=== PATIENT | male | born 1960 | race Caucasian/White ===

== ENCOUNTER 2022-05-30 11:45 | Inpatient (IN) | payer MEDICAID, SELFPAY ==
[2022-05-30] VITALS (11 sets, daily range): BP systolic 80–120; BP diastolic 48–79; PULSE 83–95; RESP 15–18; TEMP 35.4–36.8; O2SAT 96–99; BMI 30.7; BMI 29.6
[2022-05-30 12:32] LABS: COVID-19 Test Negative (Negative); IDNOW Serial# 55D5AD1C
[2022-05-30 12:33] LABS: MANUAL DIFF FLAG NO
[2022-05-30 12:34] LABS: Basophils Percent Auto 0.5 % (0-2); Eosinophils Absolute Auto 0.2 X10*3/uL (0.0-0.4); Hematocrit 33.4 % (42.0-52.0); Imm Gran Abs Auto 0.04 X10*3/uL (0.00-0.03); Imm Gran Pct Auto 0.5 % (0.0-0.4); Lymphocytes Absolute Auto 1.8 X10*3/uL (1.2-4.9); Lymphocytes Percent Auto 21.8 % (20-40); Mean Corpuscular HGB Conc 32.9 g/dl (31.0-36.0); Mean Corpuscular Hemoglobin 30.2 pg (27.0-33.0); Mean Corpuscular Volume 91.8 fL (80.0-98.0); Monocytes Absolute Auto 0.7 X10*3/uL (0.1-1.2); Neutrophils Absolute Auto 5.4 x10*3/uL (2.0-8.3); Neutrophils Percent Auto 67.2 % (45-73); Platelet Count 177 X10*3/uL (160-400); Red Blood Count 3.64 X10*6/uL (4.60-5.80); Red Cell Distribution Width 13.4 % (11.0-16.0); White Blood Count 8.1 X10*3/uL (4.8-10.8)
--- NOTE | 2022-05-30 12:34 | ED.DIZZY ---
HPI - Dizziness General Chief Complaint: Dizziness Stated Complaint: dizzy, vomiting, seeing spots Time Seen by Provider: 05/30/22 12:15 Source: patient and family Mode of arrival: ambulatory Limitations: no limitations History of Present Illness HPI Narrative: A 61-year-old male came in for evaluation of generalized weakness, dizziness, nausea and vomiting and patient found to be hypotensive. Patient was at his normal health state this morning started after he ate sandwich of peanuts butter, started with feeling nauseous followed by vomiting, patient felt dizzy room spinning around him. Patient otherwise declines fever chills no CP, no SOB, no neurological deficit, Patient had similar symptoms in the past was presented to a different hospital record on the available currently. Related Data Allergies Allergy/AdvReac Type Severity Reaction Status Date / Time No Known Allergies Allergy Unverified 05/09/20 18:56 [No Known Allergies*] Review of Systems Review of Systems: All other systems are reviewed and are negative Constitutional: Reports as per HPI and Reports no additional constitutional complaints Eyes: Reports as per HPI and Reports no additional eye complaints Reports system reviewed and no additional complaints, except as documented Cardiovascular: Reports as per HPI and Reports no additional cardiovascular complaints Respiratory: Reports as per HPI and Reports no additional respiratory complaints Gastrointestinal: Reports as per HPI and Reports no additional gastrointestinal complaints Genitourinary: Reports no additional female genitourinary complaints Musculoskeletal: Reports no additional musculoskeletal complaints Skin/Breast: Reports system reviewed and no additional complaints, except as docu Psychiatric: Reports no additional psychiatric complaints Endocrine: Reports no additional endocrine complaints Hematologic/Lymphatic: Reports no additional hematologic/lymphatic complaints Allergic/Immunologic: Reports no additional allergic/immunologic complaints Reports system reviewed and no additional complaints, except as documented and Reports Abnormal speech present [facility] Social History Social History Patient Tobacco Use Status: Current everyday Tobacco user Smoked in Last 30 Days: Yes Use of substances other than those prescribed or required for medical reasons: No Advance Directives: No Advance Directives Information Provided: Yes Physical Exam Vital Signs: Vital Signs: Last Vital Signs Temp 97.6 F 05/30/22 15:19 Pulse 84 05/30/22 15:19 Resp 16 05/30/22 15:19 BP 114/55 L 05/30/22 15:19 Pulse Ox 99 05/30/22 15:19 O2 Del Method 05/30/22 15:19 BMI result Body Mass Index 30.7 Vital signs have been reviewed as appeared to be correct. Blood pressure low. Heart rate normal. Respiration rate normal. Temperature normal. Oxygen saturation normal. Appearance: Alert. Oriented X3. No acute distress. Head: Normal external exam. Normocephalic. Atraumatic. No Ap[place]aca signs noted. No raccoon eyes noted Eyes: PERRLA. EOMI. Conjunctiva and sclera normal. Eyelids normal. ENT: TM's Normal. Pharynx normal. Uvula midline. Moist mucous membranes. No trismus noted. No drooling noted. No muffled voice noted. Neck: Normal inspection. Neck supple. FROM. No adenopathy. Thyroid Normal. No meningeal signs. No neck mass noted. CVS: Normal heart rate and rhythm. Heart sound normal. No murmurs noted. Pulses normal throughout. Respiratory: No respiratory distress. Painless inspiration. Breath sounds normal. No wheezes/rales/rhonchi noted. Chest nontender. No accessory muscle usage noted or decreased air movement noted. Abdomen: Soft and nontender. Bowel sounds normal in all 4 quadrants. No distention noted. No organomegaly noted. No visible injury noted. Rectal exam: Patient declined. Back: No CVA tenderness. Full range of motion noted. Skin: Skin warm and dry. Normal skin color. Normal skin turgor. No rashes/lesions/lacerations noted. Extremities: No lower extremity edema. Extremities exhibit normal range of motion. Extremities nontender. Neuro: Oriented X 3. Cranial nerve exam: II-XII are grossly intact No motor deficit. No sensory deficit. Reflexes normal. Course Course Course Narrative: 61-year-old male came in for vomiting and dehydration found to be in acute renal failure, patient has unremarkable CT of the abdomen pelvis with no acute obstructive uropathy. Barrios catheter was placed patient drained 500 cc of clear urine. Patient feels better after 2 L fluid blood pressure has been stable. Patient also is diabetic and found to have hypoglycemia patient require an amp of D50 and oral juice. Admit the patient for further evaluation. Normal neuro exam was normal CT head making the vertigo not likely to be central. [facility] - Dizziness Medical Records Attestation: I reviewed the patient's medical records. Lab Data Attestation: I reviewed the patient's lab results. Result diagrams: 05/30/22 12:28 05/30/22 12:10 Labs: Lab Results 05/30/22 05/30/22 05/30/22 Range/Units 12:10 12:10 12:28 WBC 8.1 (4.8-10.8) X10*3/uL RBC 3.64 L (4.60-5.80) X10*6/uL Hgb 11.0 L (14.0-18.0) g/dl Hct 33.4 L (42.0-52.0) % MCV 91.8 (80.0-98.0) fL MCH 30.2 (27.0-33.0) pg MCHC 32.9 (31.0-36.0) g/dl RDW 13.4 (11.0-16.0) % Plt Count 177 (160-400) X10*3/uL MPV 12.0 (9.4-12.4) fL Immature Gran % (Auto) 0.5 H (0.0-0.4) % Neut % (Auto) 67.2 (45-73) % Lymph % (Auto) 21.8 (20-40) % [place] % (Auto) 8.0 (2-11) % Eos % (Auto) 2.0 (0-4) % Baso % (Auto) 0.5 (0-2) % Lymph # (Auto) 1.8 (1.2-4.9) X10*3/uL [place] # (Auto) 0.7 (0.1-1.2) X10*3/uL Eos # (Auto) 0.2 (0.0-0.4) X10*3/uL Baso # (Auto) 0.0 (0.0-0.2) X10*3/uL Abs Immat Gran (auto) 0.04 H (0.00-0.03) X10*3/uL Absolute Neuts (auto) 5.4 (2.0-8.3) x10*3/uL Absolute Nucleated RBC 0.000 (0.0-0.012) X10*3/uL Nucleated RBC % (auto) 0.0 (0.0-0.2) /100WBC Sodium 139 (135-145) mmol/L Potassium 4.6 (3.3-5.1) mmol/L Chloride 109 H (96-108) mmol/L Carbon Dioxide 15 L (22-29) mmol/L Anion Gap 20 (12-20) BUN 44 H (9-16) mg/dL Creatinine 4.22 H* (0.5-1.4) mg/dL Estim Creat Clear Calc 19.1 Estimated GFR 14 POC Glucose (60-115) mg/dL Random Glucose 52 L* (60-115) mg/dL Calcium 8.8 (8.4-10.2) mg/dL Total Bilirubin 0.4 (0.0-1.0) mg/dL AST 17 (5-37) U/L ALT 12 (0-40) U/L Alkaline Phosphatase 81 (39-117) U/L Troponin I High Sens (<3.5-35.0) ng/L Total Protein 7.3 (6.5-8.0) g/dL Albumin 4.2 (3.5-5.0) g/dL COVID-19 ([facility]) Negative (Negative) COVID-19 Clin Com See Note 05/30/22 05/30/22 05/30/22 Range/Units 12:28 12:43 12:59 WBC (4.8-10.8) X10*3/uL RBC (4.60-5.80) X10*6/uL Hgb (14.0-18.0) g/dl Hct (42.0-52.0) % MCV (80.0-98.0) fL MCH (27.0-33.0) pg MCHC (31.0-36.0) g/dl RDW (11.0-16.0) % Plt Count (160-400) X10*3/uL MPV (9.4-12.4) fL Immature Gran % (Auto) (0.0-0.4) % Neut % (Auto) (45-73) % Lymph % (Auto) (20-40) % [place] % (Auto) (2-11) % Eos % (Auto) (0-4) % Baso % (Auto) (0-2) % Lymph # (Auto) (1.2-4.9) X10*3/uL [place] # (Auto) (0.1-1.2) X10*3/uL Eos # (Auto) (0.0-0.4) X10*3/uL Baso # (Auto) (0.0-0.2) X10*3/uL Abs Immat Gran (auto) (0.00-0.03) X10*3/uL Absolute Neuts (auto) (2.0-8.3) x10*3/uL Absolute Nucleated RBC (0.0-0.012) X10*3/uL Nucleated RBC % (auto) (0.0-0.2) /100WBC Sodium (135-145) mmol/L Potassium (3.3-5.1) mmol/L Chloride (96-108) mmol/L Carbon Dioxide (22-29) mmol/L Anion Gap (12-20) BUN (9-16) mg/dL Creatinine (0.5-1.4) mg/dL Estim Creat Clear Calc Estimated GFR POC Glucose 38 L* 171 H (60-115) mg/dL Random Glucose (60-115) mg/dL Calcium (8.4-10.2) mg/dL Total Bilirubin (0.0-1.0) mg/dL AST (5-37) U/L ALT (0-40) U/L Alkaline Phosphatase (39-117) U/L Troponin I High Sens < 3.5 (<3.5-35.0) ng/L Total Protein (6.5-8.0) g/dL Albumin (3.5-5.0) g/dL COVID-19 ([facility]) (Negative) COVID-19 Clin Com 05/30/22 Range/Units 14:32 WBC (4.8-10.8) X10*3/uL RBC (4.60-5.80) X10*6/uL Hgb (14.0-18.0) g/dl Hct (42.0-52.0) % MCV (80.0-98.0) fL MCH (27.0-33.0) pg MCHC (31.0-36.0) g/dl RDW (11.0-16.0) % Plt Count (160-400) X10*3/uL MPV (9.4-12.4) fL Immature Gran % (Auto) (0.0-0.4) % Neut % (Auto) (45-73) % Lymph % (Auto) (20-40) % [place] % (Auto) (2-11) % Eos % (Auto) (0-4) % Baso % (Auto) (0-2) % Lymph # (Auto) (1.2-4.9) X10*3/uL [place] # (Auto) (0.1-1.2) X10*3/uL Eos # (Auto) (0.0-0.4) X10*3/uL Baso # (Auto) (0.0-0.2) X10*3/uL Abs Immat Gran (auto) (0.00-0.03) X10*3/uL Absolute Neuts (auto) (2.0-8.3) x10*3/uL Absolute Nucleated RBC (0.0-0.012) X10*3/uL Nucleated RBC % (auto) (0.0-0.2) /100WBC Sodium (135-145) mmol/L Potassium (3.3-5.1) mmol/L Chloride (96-108) mmol/L Carbon Dioxide (22-29) mmol/L Anion Gap (12-20) BUN (9-16) mg/dL Creatinine (0.5-1.4) mg/dL Estim Creat Clear Calc Estimated GFR POC Glucose 95 (60-115) mg/dL Random Glucose (60-115) mg/dL Calcium (8.4-10.2) mg/dL Total Bilirubin (0.0-1.0) mg/dL AST (5-37) U/L ALT (0-40) U/L Alkaline Phosphatase (39-117) U/L Troponin I High Sens (<3.5-35.0) ng/L Total Protein (6.5-8.0) g/dL Albumin (3.5-5.0) g/dL COVID-19 ([facility]) (Negative) COVID-19 Clin Com Imaging Data Head CT: Attestation: I personally reviewed and interpreted this imaging study as follows: Radiologist's impression: No acute intracranial abnormality. Mild bilateral periventricular white matter patchy low-attenuation changes, likely of chronic microangiopathy. CT scan - abdomen: Attestation: I personally reviewed and interpreted this imaging study as follows: Radiologist's impression: *There is 4 mm nonobstructing stone lower calyx left kidney. No hydronephrosis. Minimal bilateral perinephric fat stranding nonspecific. No morphological changes to explain patient's acute renal failure. ? *Urinary bladder is decompressed, Barrios catheter in place. ? *Status post cholecystectomy. ECG Data Attestation: I personally reviewed and interpreted this ECG as follows: Interpretation: Normal sinus rhythm at 87 beats per minute, left axis deviation, normal intervals. Critical Care Time Critical Care Time Critical Care Time: Yes Total Critical Care Time: 60 Attestation: I spent 60 minutes providing critical care service to the patient, this including time spent at the bedside to evaluate the patient, reassess the patient, monitoring vital signs, review labs, and radiographic studies, counseling the patient/family, discussing the case with consultants, disposition the patient. Discharge Plan Discharge Clinical Impression: Acute renal failure, Hypoglycemia, Vertigo Patient Disposition: Admitted As Inpatient
[2022-05-30 12:39] LABS: Alanine Aminotransferase 12 U/L (0-40); Albumin Level 4.2 g/dL (3.5-5.0); Alkaline Phosphatase 81 U/L (39-117); Anion Gap 20 (12-20); Aspartate Amino Transferase 17 U/L (5-37); Bilirubin Total 0.4 mg/dL (0.0-1.0); Blood Urea Nitrogen 44 mg/dL (9-16); Calcium 8.8 mg/dL (8.4-10.2); Carbon Dioxide 15 mmol/L (22-29); Chloride 109 mmol/L (96-108); Creatinine Clr Calc Pharmacy 19.1; Estimated Glomerular Filt Rate 14; Glucose Random 52 mg/dL (60-115); Potassium 4.6 mmol/L (3.3-5.1); Sodium 139 mmol/L (135-145); Total Protein 7.3 g/dL (6.5-8.0)
[2022-05-30] MEDS: Dextrose 50 % 25 GM/50 ML SYRINGE IVPUSH (12:44)
[2022-05-30] MEDS: ondansetron HCL 4 MG/2 ML VIAL IVPUSH (12:48)
[2022-05-30] MEDS: Meclizine HCl 25 MG TABLET PO (12:48)
[2022-05-30 12:56] LABS: Troponin-I High Sensitivity < 3.5 ng/L (<3.5-35.0)
--- NOTE | 2022-05-30 16:40 | PHA.MEDREC ---
Pharmacy Consult ? Medication Reconciliation Pharmacy has completed the medication reconciliation. pt only takes 200 mg of quetiapine daily at bedtime. He fills both the 100 and the 400 mg tablets and will either take 2 of the 100 mg or half of the 400 mg.
[2022-05-30 17:03] LABS: Estimated Average Glucose 117 mg/dL; Hemoglobin A1c % 5.7 %
[2022-05-30 17:57] LABS: Creatinine Urine 116.59 mg/dL; Total Protein Urine Random 15 mg/dL (<12)
--- NOTE | 2022-05-30 18:04 | PM.IMHP ---
History of Present Illness Date of Service: 05/30/22 Chief Complaint: lightheadedness, vomiting 61yo M with HTN, DM2, and HLD visiting from [place], [place], where his primary care is from [facility] at [address] [place] [address]. He came in because he woke up lightheaded, sweaty, and nauseous. He also has been vomiting for the past 1 day; in retrospect, though, he's had intermittent vomiting every 3 days or so for the past few months. No fever, chills, cough, dyspnea, chest pain, palpitations, or abdominal pain. In the ED, he was found to be hypotensive to 80/51 and hypothermic to 95.9. Blood glucose was 38. He was given D50 IV and the hypoglycemia, hypotension, and hypothermia resolved. His lightheadeness has resolved. However, he was found to have elevated SCr of 4.22; BUN was 44; serum bicarbonate 15. CT unremarkable with no obstructive uropathy. Barrios was placed with return of 500 mL of clear urine. We do not have a baseline creatinine. No excess NSAID use and no history of CKD. No recent changes to his medication regimen. No diarrhea. Review of Systems Review of Systems: Yes all other systems are reviewed and are negative [facility] Medical History Dyslipidemia Essential hypertension Type 2 diabetes mellitus Family History Mother Diabetes Surgical History History of cholecystectomy Social History Patient Tobacco Use Status: Current everyday Tobacco user Smoked in Last 30 Days: Yes Use of substances other than those prescribed or required for medical reasons: No Advance Directives: No Advance Directives Information Provided: Yes Meds Allergies Allergy/AdvReac Type Severity Reaction Status Date / Time No Known Allergies Allergy Unverified 05/09/20 18:56 [No Known Allergies*] Active Medications: Current Medications Acetaminophen (Acetaminophen 325 Mg Tablet) 650 mg PO Q6H PRN PRN Reason: Pain, Mild (Pain Scale 1-3) Atorvastatin Calcium (Atorvastatin Calcium 80 Mg Tablet) 80 mg PO DAILY [facility]OR[facility] Bupropion HCl (Bupropion Hcl Xl 300 Mg Tab.Er.24h) 300 mg PO DAILY [facility] Dextrose (Dextrose 50 % 25 Gm/50 Ml Syringe) 25 gm IVPUSH Q15M PRN PRN Reason: per Hypoglycemia Standing Ord. Last Admin: 05/30/22 12:44 Dose: 25 gm Dextrose (Dextrose 50 % 25 Gm/50 Ml Syringe) 25 gm IVPUSH Q15M PRN; Protocol PRN Reason: per Hypoglycemia Standing Ord. Gabapentin (Gabapentin 100 Mg Capsule) 100 mg PO TID [facility] Glucose (Glucose Gel 15 Gm Gel..Gram.) 15 gm PO Q15M PRN; Protocol PRN Reason: per Hypoglycemia Standing Ord. Heparin Sodium (Porcine) (Heparin Sodium,Porcine 5,000 Unit/Ml Vial) 5,000 unit SUBCUT Q8H [facility] Insulin Human Lispro (Insulin Lispro 100 Unit/Ml 3 Ml Vial) 0 unit SUBCUT QIDACHS [facility]; Protocol Last Admin: 05/30/22 16:49 Dose: Not Given Metoprolol Tartrate (Metoprolol Tartrate 25 Mg Tablet) 25 mg PO BID [facility]; Protocol Nicotine (Nicotine 21 Mg Patch.Td24) 21 mg TRANSDERMA DAILY [facility] Nicotine Polacrilex (Nicotine Polacrilex Lozenge 4 Mg Lozenge) 4 mg BUCCAL Q2H PRN PRN Reason: Nicotine Cravings Ondansetron HCl (Ondansetron Hcl 4 Mg/2 Ml Vial) 4 mg IVPUSH Q8H PRN PRN Reason: Nausea and Vomiting Pharmacy Consult (Consult Rx Perform Med Rec) 1 each MISCELLANE ONCE PRN PRN Reason: Consult order Quetiapine Fumarate (Quetiapine Fumarate 400 Mg Tablet) 400 mg PO BEDTIME [facility] Quetiapine Fumarate (Quetiapine Fumarate 100 Mg Tablet) 100 mg PO BEDTIME [facility] Sildenafil Citrate (Sildenafil Citrate 20 Mg Tablet) 20 mg PO DAILY [facility] Sodium Chloride (0.9 % Sodium Chloride Flush 3 Ml Syringe) 3 ml IVFLUSH QSHIFT [facility] Home Medications Medication Instructions Recorded Confirmed Last Taken Type acetaminophen 500 mg tablet 1 tab PO Q8H PRN Fever Or Pain 05/30/22 05/30/22 05/29/22 History atorvastatin 80 mg tablet 1 tab PO DAILY 05/30/22 05/30/22 05/29/22 History bupropion HCl 150 mg tablet,12 hr 300 mg PO DAILY 05/30/22 05/30/22 05/29/22 History sustained-release dulaglutide 0.75 mg/0.5 mL 0.75 mg subcut Mo@0900 05/30/22 05/30/22 05/29/22 History subcutaneous pen injector (Trulicity) eszopiclone 2 mg tablet 1 tab PO BEDTIME PRN Sleep 05/30/22 05/30/22 05/29/22 History gabapentin 300 mg capsule 1 cap PO TID PRN Pain 05/30/22 05/30/22 05/29/22 History insulin glargine 100 unit/mL (3 45 unit subcut BEDTIME 05/30/22 05/30/22 05/29/22 History mL) subcutaneous pen (Basaglar Velia U-100 Insulin) lisinopril 20 2 tab PO DAILY 05/30/22 05/30/22 05/29/22 History mg-hydrochlorothiazide 12.5 mg tablet metformin 500 mg tablet,extended 4 tab PO QAM 05/30/22 05/30/22 05/29/22 History release 24 hr metoprolol tartrate 25 mg tablet 1 tab PO BID 05/30/22 05/30/22 05/29/22 History nicotine (polacrilex) 4 mg buccal 1 adelina PO Q2H PRN Nicotine Cravings 05/30/22 05/30/22 05/29/22 History lozenge nicotine 21 mg/24 hr daily 1 patch topical DAILY 05/30/22 05/30/22 05/29/22 History transdermal patch quetiapine 100 mg tablet 200 mg PO BEDTIME 05/30/22 05/30/22 05/29/22 History sildenafil (pulm.hypertension) 20 20 mg PO DAILY 05/30/22 05/30/22 05/29/22 History mg tablet Physical Exam Vital Signs and Narrative: Vital Signs: Last Vital Signs Temp 97.6 F 05/30/22 15:19 Pulse 84 05/30/22 15:19 Resp 16 05/30/22 15:19 BP 117/48 L 05/30/22 16:50 Pulse Ox 99 05/30/22 15:19 O2 Del Method 05/30/22 15:19 BMI result Body Mass Index 30.7 Gen: in no acute distress HEENT: sclera anicteric, moist mucus membranes Neck: supple Lungs: clear to auscultation bilaterally Heart: regular rate and rhythm, no murmurs Abd: soft, non-tender, non-distended Ext: no edema Skin: warm/well-perfused Neuro: alert and oriented x3, no focal findings Psych: appropriate affect Results Labs CBC and Chem 7: 05/30/22 12:28 05/30/22 12:10 Labs: Laboratory Results - last 24 hr 05/30/22 05/30/22 05/30/22 12:10 12:10 12:28 MCV 91.8 MCH 30.2 MCHC 32.9 RDW 13.4 Plt Count 177 MPV 12.0 Immature Gran % (Auto) 0.5 H Neut % (Auto) 67.2 Lymph % (Auto) 21.8 [place] % (Auto) 8.0 Eos % (Auto) 2.0 Baso % (Auto) 0.5 Lymph # (Auto) 1.8 [place] # (Auto) 0.7 Eos # (Auto) 0.2 Baso # (Auto) 0.0 Abs Immat Gran (auto) 0.04 H Absolute Neuts (auto) 5.4 Absolute Nucleated RBC 0.000 Nucleated RBC % (auto) 0.0 Anion Gap 20 Estim Creat Clear Calc 19.1 Estimated GFR 14 POC Glucose Random Glucose 52 L* Estimat Average Glucose Hemoglobin A1c % Calcium 8.8 Total Bilirubin 0.4 AST 17 ALT 12 Alkaline Phosphatase 81 Troponin I High Sens Total Protein 7.3 Albumin 4.2 U Random Total Protein Ur Random Sodium Urine Creatinine COVID-19 ([facility]) Negative COVID-19 Clin Com See Note 05/30/22 05/30/22 05/30/22 12:28 12:28 12:43 MCV MCH MCHC RDW Plt Count MPV Immature Gran % (Auto) Neut % (Auto) Lymph % (Auto) [place] % (Auto) Eos % (Auto) Baso % (Auto) Lymph # (Auto) [place] # (Auto) Eos # (Auto) Baso # (Auto) Abs Immat Gran (auto) Absolute Neuts (auto) Absolute Nucleated RBC Nucleated RBC % (auto) Anion Gap Estim Creat Clear Calc Estimated GFR POC Glucose 38 L* Random Glucose Estimat Average Glucose 117 Hemoglobin A1c % 5.7 Calcium Total Bilirubin AST ALT Alkaline Phosphatase Troponin I High Sens < 3.5 Total Protein Albumin U Random Total Protein Ur Random Sodium Urine Creatinine COVID-19 ([facility]) COVID-19 Clin Com 05/30/22 05/30/22 05/30/22 12:59 14:32 16:49 MCV MCH MCHC RDW Plt Count MPV Immature Gran % (Auto) Neut % (Auto) Lymph % (Auto) [place] % (Auto) Eos % (Auto) Baso % (Auto) Lymph # (Auto) [place] # (Auto) Eos # (Auto) Baso # (Auto) Abs Immat Gran (auto) Absolute Neuts (auto) Absolute Nucleated RBC Nucleated RBC % (auto) Anion Gap Estim Creat Clear Calc Estimated GFR POC Glucose 171 H 95 82 Random Glucose Estimat Average Glucose Hemoglobin A1c % Calcium Total Bilirubin AST ALT Alkaline Phosphatase Troponin I High Sens Total Protein Albumin U Random Total Protein Ur Random Sodium Urine Creatinine COVID-19 ([facility]) COVID-19 Clin Com 05/30/22 17:17 MCV MCH MCHC RDW Plt Count MPV Immature Gran % (Auto) Neut % (Auto) Lymph % (Auto) [place] % (Auto) Eos % (Auto) Baso % (Auto) Lymph # (Auto) [place] # (Auto) Eos # (Auto) Baso # (Auto) Abs Immat Gran (auto) Absolute Neuts (auto) Absolute Nucleated RBC Nucleated RBC % (auto) Anion Gap Estim Creat Clear Calc Estimated GFR POC Glucose Random Glucose Estimat Average Glucose Hemoglobin A1c % Calcium Total Bilirubin AST ALT Alkaline Phosphatase Troponin I High Sens Total Protein Albumin U Random Total Protein 15 H Ur Random Sodium 77.0 Urine Creatinine 116.59 COVID-19 ([facility]) COVID-19 Clin Com Imaging Radiologist's Impressions: Impressions Abdomen/Pelvis CT 05/30/22 14:00 IMPRESSION: *There is 4 mm nonobstructing stone lower calyx left kidney. No hydronephrosis. Minimal bilateral perinephric fat stranding nonspecific. No morphological changes to explain patient's acute renal failure. *Urinary bladder is decompressed, Barrios catheter in place. *Status post cholecystectomy. Head CT 05/30/22 14:00 IMPRESSION: No acute intracranial abnormality. Mild bilateral periventricular white matter patchy low-attenuation changes, likely of chronic microangiopathy. Chest X-Ray 05/30/22 16:05 IMPRESSION: 1. No acute pulmonary process. Assessment and Plan (1) Acute renal failure: Status: Acute Plan 61yo M with HTN, DM2, and HLD visiting from [place], [place] presenting with acute symptomatic hypoglycemia with hypotension, found to be in JAMARI. # JAMARI - admit to M/S. unknown baseline- obtain records from his primary care office. start isotonic fluid hydration. check urine electrolytes/protein. consult Nephrology. monitor BMP. hold DANA-I and thiazide. avoid nephrotoxins. # hypoglycemia, resolved - likely due to impaired renal clearance of long-acting insulin- hold this. # HTN - hold lisinopril + HCTZ as above; continue metoprolo tartrate # DM2 - A1c only 5.7- hold insulin for now other than correction-dose lispro. d/c MTF due to renal insufficnecy # tobacco abuse - NRT # VTE ppx: UFH # code: FULL I anticipate that the patient will stay at least 2 midnights in hospital due to the above reasons. It is neither reasonable nor safe to care for them in a less acute setting. Quality Stroke Does the patient have a stroke diagnosis?: No VTE Prior VTE?: No VTE Risk Level:: Medical - moderate - high VTE Device Contraindication: N/A - Device Ordered VTE Drug Contraindication: N/A - Med Ordered
[2022-05-30] MEDS: Heparin Sodium,Porcine 5,000 UNIT/ML VIAL 5000 UNIT SUBCUT (18:09)
--- NOTE | 2022-05-30 19:11 | PC.NURSE ---
Assumed care of pt. at 1900. Pt. resting quietly in bed. Pt. states he isn't feeling dizzy or nauseated and that usually only occurs when he stands. Pt. does express discomfort from the saez catheter. Penile area looks good, no bleeding or redness. Saez is draining light yellow, clear urine. Will continue to monitor.
[2022-05-30] MEDS: Metoprolol Tartrate 25 MG TABLET PO (21:11)
[2022-05-30] MEDS: QUEtiapine Fumarate 100 MG TABLET PO (21:13)
[2022-05-30] MEDS: 0.9 % Sodium Chloride Flush 3 ML SYRINGE IVFLUSH (22:26)
[2022-05-31] VITALS (7 sets, daily range): BP systolic 96–127; BP diastolic 54–61; PULSE 78–85; RESP 16–18; TEMP 36.2–37; O2SAT 95–98
[2022-05-31] MEDS: Heparin Sodium,Porcine 5,000 UNIT/ML VIAL 5000 UNIT SUBCUT ×3 (03:15→17:11)
--- NOTE | 2022-05-31 05:22 | PC.NURSE ---
Pt came from the ED to room 351 at around 1999, pt is alert and oriented, denies any discomfort, seen ambulating in steady gait, pt requested for a sleep med using Lunesta at home, pt also requesting Seroquel 200 mg po only ad it gives him Hallucination on his usual dose, Dr. Doe was informed, Lunesta is not available, Trazodone was ordered instead, pt refused the med when offered, Seroquel 100 mg po given, pt called his girlfriend and brought his Lunesta from home.
[2022-05-31 06:20] LABS: Hematocrit 30.4 % (42.0-52.0); Hemoglobin 9.9 g/dl (14.0-18.0); Mean Corpuscular HGB Conc 32.6 g/dl (31.0-36.0); Mean Corpuscular Hemoglobin 29.6 pg (27.0-33.0); Mean Corpuscular Volume 90.7 fL (80.0-98.0); Mean Platelet Volume 11.8 fL (9.4-12.4); Platelet Count 146 X10*3/uL (160-400); Red Blood Count 3.35 X10*6/uL (4.60-5.80); Red Cell Distribution Width 13.2 % (11.0-16.0); White Blood Count 6.1 X10*3/uL (4.8-10.8)
[2022-05-31 06:46] LABS: Anion Gap 15 (12-20); Blood Urea Nitrogen 41 mg/dL (9-16); Calcium 8.6 mg/dL (8.4-10.2); Carbon Dioxide 20 mmol/L (22-29); Chloride 109 mmol/L (96-108); Creatinine Clr Calc Pharmacy 28.6; Estimated Glomerular Filt Rate 23; Glucose Random 70 mg/dL (60-115); Potassium 4.7 mmol/L (3.3-5.1); Sodium 139 mmol/L (135-145)
[2022-05-31 08:09] LABS: Immature Retic Fraction 11.4 % (2.3-13.4); Retic HGB Equivalent 35.3 pg (30.0-35.0); Reticulocyte Percent 1.4 % (0.5-1.8); Reticulocytes Absolute 0.048 X10*6/uL (0.026-0.095)
[2022-05-31 08:23] LABS: Iron 46 mcg/dL (45-160); Lactate Dehydrogenase 110 U/L (118-273); Percent Iron Saturation 21 % (15-50); Total Iron Binding Capacity 217 mcg/dL (228-428); Unsaturated Iron Binding 171 ug/dL
[2022-05-31] MEDS: Atorvastatin Calcium 80 MG TABLET PO (08:29)
[2022-05-31] MEDS: Metoprolol Tartrate 25 MG TABLET PO ×2 (08:29→21:15)
[2022-05-31] MEDS: buPROPion HCl XL 300 MG TAB.ER.24H PO (08:30)
[2022-05-31] MEDS: Nicotine 21 MG PATCH.TD24 TRANSDERMA (08:30)
[2022-05-31] MEDS: 0.9 % Sodium Chloride Flush 3 ML SYRINGE IVFLUSH (08:31)
[2022-05-31 08:43] LABS: Ferritin 211 ng/mL (20-250)
[2022-05-31] MEDS: Lactated Ringers 1,000 ML 125 ML IVCONT ×3 (09:52→18:16)
--- NOTE | 2022-05-31 10:11 | HO.PM.IMPN ---
Subjective Subjective Date of Service: 05/31/22 Interval History: no N/V lightheadedness resolved hypotension + hypoglycemia resolved SCr improving Review of Systems Review of Systems: Yes all other systems are reviewed and are negative Physical Exam Vital Signs: Vital Signs: Last Vital Signs Temp 97.2 F 05/31/22 07:41 Pulse 79 05/31/22 07:41 Resp 16 05/31/22 07:41 BP 102/55 L 05/31/22 07:41 Pulse Ox 95 05/31/22 07:41 O2 Del Method 05/31/22 07:41 BMI result Body Mass Index 29.6 Gen: in no acute distress HEENT: sclera anicteric, moist mucus membranes Neck: supple Lungs: clear to auscultation bilaterally Heart: regular rate and rhythm, no murmurs Abd: soft, non-tender, non-distended Ext: no edema Skin: warm/well-perfused Neuro: alert and oriented x3, no focal findings Psych: appropriate affect Objective Data Active Medications Acetaminophen (Acetaminophen 325 Mg Tablet) 650 mg PO Q6H PRN PRN Reason: Pain, Mild (Pain Scale 1-3) Atorvastatin Calcium (Atorvastatin Calcium 80 Mg Tablet) 80 mg PO DAILY [facility] Last Admin: 05/31/22 08:29 Dose: 80 mg Documented By: LEROY Bupropion HCl (Bupropion Hcl Xl 300 Mg Tab.Er.24h) 300 mg PO DAILY [facility] Last Admin: 05/31/22 08:30 Dose: 300 mg Documented By: LEROY Dextrose (Dextrose 50 % 25 Gm/50 Ml Syringe) 25 gm IVPUSH Q15M PRN PRN Reason: per Hypoglycemia Standing Ord. Last Admin: 05/30/22 12:44 Dose: 25 gm Documented By: FRANCESCA Dextrose (Dextrose 50 % 25 Gm/50 Ml Syringe) 25 gm IVPUSH Q15M PRN; Protocol PRN Reason: per Hypoglycemia Standing Ord. Gabapentin (Gabapentin 100 Mg Capsule) 100 mg PO TID [facility] Last Admin: 05/31/22 08:37 Dose: Not Given Documented By: LEROY Non-Admin Reason: Patient Refused Glucose (Glucose Gel 15 Gm Gel..Gram.) 15 gm PO Q15M PRN; Protocol PRN Reason: per Hypoglycemia Standing Ord. Heparin Sodium (Porcine) (Heparin Sodium,Porcine 5,000 Unit/Ml Vial) 5,000 unit SUBCUT Q8H [facility] Last Admin: 05/31/22 08:38 Dose: 5,000 unit Documented By: LEROY Lactated Ringer's (Lr) 1,000 mls @ 125 mls/hr IVCONT .Q8H [facility] Last Admin: 05/31/22 10:02 Dose: 125 mls/hr Documented By: LEROY Insulin Human Lispro (Insulin Lispro 100 Unit/Ml 3 Ml Vial) 0 unit SUBCUT QIDACHS [facility]; Protocol Last Admin: 05/31/22 08:23 Dose: Not Given Documented By: LEROY Non-Admin Reason: No Insulin Coverage Metoprolol Tartrate (Metoprolol Tartrate 25 Mg Tablet) 25 mg PO BID [facility]; Protocol Last Admin: 05/31/22 08:29 Dose: 25 mg Documented By: LEROY Nicotine (Nicotine 21 Mg Patch.Td24) 21 mg TRANSDERMA DAILY [facility] Last Admin: 05/31/22 08:30 Dose: 21 mg Documented By: LEROY Nicotine Polacrilex (Nicotine Polacrilex Lozenge 4 Mg Lozenge) 4 mg BUCCAL Q2H PRN PRN Reason: Nicotine Cravings Ondansetron HCl (Ondansetron Hcl 4 Mg/2 Ml Vial) 4 mg IVPUSH Q8H PRN PRN Reason: Nausea and Vomiting Pharmacy Consult (Consult Rx Perform Med Rec) 1 each MISCELLANE ONCE PRN PRN Reason: Consult order Quetiapine Fumarate (Quetiapine Fumarate 100 Mg Tablet) 100 mg PO BEDTIME [facility] Last Admin: 05/30/22 21:13 Dose: 100 mg Documented By: CASTILM Sodium Chloride (0.9 % Sodium Chloride Flush 3 Ml Syringe) 3 ml IVFLUSH QSHIFT [facility] Last Admin: 05/31/22 08:31 Dose: 3 ml Documented By: LEROY Labs CBC & Chem 7: 05/31/22 05:24 05/31/22 05:38 Labs: Laboratory Results - last 24 hr 05/30/22 05/30/22 05/30/22 12:10 12:10 12:28 MCV 91.8 MCH 30.2 MCHC 32.9 RDW 13.4 Plt Count 177 MPV 12.0 Immature Gran % (Auto) 0.5 H Neut % (Auto) 67.2 Lymph % (Auto) 21.8 [place] % (Auto) 8.0 Eos % (Auto) 2.0 Baso % (Auto) 0.5 Lymph # (Auto) 1.8 [place] # (Auto) 0.7 Eos # (Auto) 0.2 Baso # (Auto) 0.0 Abs Immat Gran (auto) 0.04 H Absolute Neuts (auto) 5.4 Absolute Nucleated RBC 0.000 Nucleated RBC % (auto) 0.0 Absolute Retic Percent Retic Immature Retic Fraction Retic Hgb Equivalent Anion Gap 20 Estim Creat Clear Calc 19.1 Estimated GFR 14 POC Glucose Random Glucose 52 L* Estimat Average Glucose Hemoglobin A1c % Calcium 8.8 Iron TIBC % Saturation Unsat Iron Binding Ferritin Total Bilirubin 0.4 AST 17 ALT 12 Alkaline Phosphatase 81 Lactate Dehydrogenase Troponin I High Sens Total Protein 7.3 Albumin 4.2 U Random Total Protein Ur Random Sodium Urine Creatinine COVID-19 ([facility]) Negative COVID-19 [place] Com See Note 05/30/22 05/30/22 05/30/22 12:28 12:28 12:43 MCV MCH MCHC RDW Plt Count MPV Immature Gran % (Auto) Neut % (Auto) Lymph % (Auto) [place] % (Auto) Eos % (Auto) Baso % (Auto) Lymph # (Auto) [place] # (Auto) Eos # (Auto) Baso # (Auto) Abs Immat Gran (auto) Absolute Neuts (auto) Absolute Nucleated RBC Nucleated RBC % (auto) Absolute Retic Percent Retic Immature Retic Fraction Retic Hgb Equivalent Anion Gap Estim Creat Clear Calc Estimated GFR POC Glucose 38 L* Random Glucose Estimat Average Glucose 117 Hemoglobin A1c % 5.7 Calcium Iron TIBC % Saturation Unsat Iron Binding Ferritin Total Bilirubin AST ALT Alkaline Phosphatase Lactate Dehydrogenase Troponin I High Sens < 3.5 Total Protein Albumin U Random Total Protein Ur Random Sodium Urine Creatinine COVID-19 ([facility]) COVID-Nu[employer] Com 05/30/22 05/30/22 05/30/22 12:59 14:32 16:49 MCV MCH MCHC RDW Plt Count MPV Immature Gran % (Auto) Neut % (Auto) Lymph % (Auto) [place] % (Auto) Eos % (Auto) Baso % (Auto) Lymph # (Auto) [place] # (Auto) Eos # (Auto) Baso # (Auto) Abs Immat Gran (auto) Absolute Neuts (auto) Absolute Nucleated RBC Nucleated RBC % (auto) Absolute Retic Percent Retic Immature Retic Fraction Retic Hgb Equivalent Anion Gap Estim Creat Clear Calc Estimated GFR POC Glucose 171 H 95 82 Random Glucose Estimat Average Glucose Hemoglobin A1c % Calcium Iron TIBC % Saturation Unsat Iron Binding Ferritin Total Bilirubin AST ALT Alkaline Phosphatase Lactate Dehydrogenase Troponin I High Sens Total Protein Albumin U Random Total Protein Ur Random Sodium Urine Creatinine COVID-19 ([facility]) COVID-19 Clin Com 05/30/22 05/30/22 05/31/22 17:17 20:20 05:24 MCV 90.7 MCH 29.6 MCHC 32.6 RDW 13.2 Plt Count 146 L MPV 11.8 Immature Gran % (Auto) Neut % (Auto) Lymph % (Auto) [place] % (Auto) Eos % (Auto) Baso % (Auto) Lymph # (Auto) [place] # (Auto) Eos # (Auto) Baso # (Auto) Abs Immat Gran (auto) Absolute Neuts (auto) Absolute Nucleated RBC 0.000 Nucleated RBC % (auto) 0.0 Absolute Retic 0.048 Percent Retic 1.4 Immature Retic Fraction 11.4 Retic Hgb Equivalent 35.3 H Anion Gap Estim Creat Clear Calc Estimated GFR POC Glucose 102 Random Glucose Estimat Average Glucose Hemoglobin A1c % Calcium Iron TIBC % Saturation Unsat Iron Binding Ferritin Total Bilirubin AST ALT Alkaline Phosphatase Lactate Dehydrogenase Troponin I High Sens Total Protein Albumin U Random Total Protein 15 H Ur Random Sodium 77.0 Urine Creatinine 116.59 COVID-19 ([facility]) COVID-19 Clin Com 05/31/22 05/31/22 05:38 07:45 MCV MCH MCHC RDW Plt Count MPV Immature Gran % (Auto) Neut % (Auto) Lymph % (Auto) [place] % (Auto) Eos % (Auto) Baso % (Auto) Lymph # (Auto) [place] # (Auto) Eos # (Auto) Baso # (Auto) Abs Immat Gran (auto) Absolute Neuts (auto) Absolute Nucleated RBC Nucleated RBC % (auto) Absolute Retic Percent Retic Immature Retic Fraction Retic Hgb Equivalent Anion Gap 15 Estim Creat Clear Calc 28.6 Estimated GFR 23 POC Glucose 79 Random Glucose 70 Estimat Average Glucose Hemoglobin A1c % Calcium 8.6 Iron 46 TIBC 217 L % Saturation 21 Unsat Iron Binding 171 Ferritin 211 Total Bilirubin AST ALT Alkaline Phosphatase Lactate Dehydrogenase 110 L Troponin I High Sens Total Protein Albumin U Random Total Protein Ur Random Sodium Urine Creatinine COVID-19 ([facility]) COVID-19 Clin Com Assessment and Plan (1) Acute renal failure: Status: Acute Plan hospital d#2 61yo M with HTN, DM2, and HLD visiting from [place], [place] presenting with acute symptomatic hypoglycemia with hypotension, found to be in JAMARI. # JAMARI - unknown baseline- obtain records from his primary care office in [place]. continue isotonic fluid hydration.? Nephrology consult pending.? monitor BMP.? hold DANA-I and thiazide.? avoid nephrotoxins.? # hypoglycemia, resolved - likely due to impaired renal clearance of long-acting insulin- held # HTN - held lisinopril + HCTZ as above; continue metoprolol tartrate # DM2 - A1c only 5.7- hold insulin for now other than correction-dose lispro.? d/c'ed MTF due to renal insufficnecy # tobacco abuse - NRT # VTE ppx: UFH In my clinical judgment, the patient requires continued hospitalization for the following reasons: JAMARI requiring IV fluid hydration Quality Stroke Does the patient have a stroke diagnosis?: No VTE Prior VTE?: No VTE Risk Level:: Medical - moderate - high VTE Device Contraindication: N/A - Device Ordered VTE Drug Contraindication: N/A - Med Ordered
--- NOTE | 2022-05-31 10:36 | MHC.CM.PN ---
CM spoke with Patient who lives in a house with his adult Son and required no DME nor services [employer]. Home self care is the goal and CM has initiated and will follow for dc planning. PCP is Dr.Giancarlo Yoo @ [phone] and Patient has received Moderna/Covid vax x4.
[2022-05-31] MEDS: Insulin Lispro 100 UNIT/ML 3 ML VIAL SUBCUT ×3 (11:55→21:15)
--- NOTE | 2022-05-31 12:51 | PM.CNNEP ---
History of Present Illness Reason for Consult Consult date: 05/31/22 Reason for consult: JAMARI Chief Complaint Chief complaint: Hypotension, Hypogylcemia, JAMARI History of Present Illness Narrative: Mr. Coleman Harris is a 61-year-old gentleman with past medical history of intermittent Diarrhea, HTN, DM2, and HLD who presented with orthostatic symptoms. He was found to have hypotension responding to IVF support. HE was also found to have renal failure with SCr of 4.22; BUN was 44; serum bicarbonate 15. CT unremarkable with no obstructive uropathy.? Saez was placed with return of 500 mL of clear urine.? He tells me he has had urinary retention symptoms for months. Saez has been removed this AM. He has not yet voided. Review of Systems Review of Systems Yes all other systems are reviewed and are negative PMF Past Medical History Medical History Dyslipidemia Essential hypertension Type 2 diabetes mellitus Family History Family History Mother Diabetes Surgical History Surgical History History of cholecystectomy Social History Social History Household Members: Significant Other Housing: House Patient Tobacco Use Status: Current everyday Tobacco user service: No Current occupational status: disabled Meds Allergies Allergy/AdvReac Type Severity Reaction Status Date / Time No Known Allergies Allergy Unverified 05/09/20 18:56 [No Known Allergies*] Active Medications: Current Medications Acetaminophen (Acetaminophen 325 Mg Tablet) 650 mg PO Q6H PRN PRN Reason: Pain, Mild (Pain Scale 1-3) Atorvastatin Calcium (Atorvastatin Calcium 80 Mg Tablet) 80 mg PO DAILY [facility] Last Admin: 05/31/22 08:29 Dose: 80 mg Bupropion HCl (Bupropion Hcl Xl 300 Mg Tab.Er.24h) 300 mg PO DAILY [facility] Last Admin: 05/31/22 08:30 Dose: 300 mg Dextrose (Dextrose 50 % 25 Gm/50 Ml Syringe) 25 gm IVPUSH Q15M PRN PRN Reason: per Hypoglycemia Standing Ord. Last Admin: 05/30/22 12:44 Dose: 25 gm Dextrose (Dextrose 50 % 25 Gm/50 Ml Syringe) 25 gm IVPUSH Q15M PRN; Protocol PRN Reason: per Hypoglycemia Standing Ord. Gabapentin (Gabapentin 100 Mg Capsule) 100 mg PO TID [facility] Last Admin: 05/31/22 08:37 Dose: Not Given Glucose (Glucose Gel 15 Gm Gel..Gram.) 15 gm PO Q15M PRN; Protocol PRN Reason: per Hypoglycemia Standing Ord. Heparin Sodium (Porcine) (Heparin Sodium,Porcine 5,000 Unit/Ml Vial) 5,000 unit SUBCUT Q8H [facility] Last Admin: 05/31/22 08:38 Dose: 5,000 unit Lactated Ringer's (Lr) 1,000 mls @ 125 mls/hr IVCONT .Q8H [facility] Last Admin: 05/31/22 10:02 Dose: 125 mls/hr Insulin Human Lispro (Insulin Lispro 100 Unit/Ml 3 Ml Vial) 0 unit SUBCUT QIDACHS [facility]; Protocol Last Admin: 05/31/22 11:55 Dose: 2 unit Metoprolol Tartrate (Metoprolol Tartrate 25 Mg Tablet) 25 mg PO BID [facility]; Protocol Last Admin: 05/31/22 08:29 Dose: 25 mg Nicotine (Nicotine 21 Mg Patch.Td24) 21 mg TRANSDERMA DAILY [facility] Last Admin: 05/31/22 08:30 Dose: 21 mg Nicotine Polacrilex (Nicotine Polacrilex Lozenge 4 Mg Lozenge) 4 mg BUCCAL Q2H PRN PRN Reason: Nicotine Cravings Ondansetron HCl (Ondansetron Hcl 4 Mg/2 Ml Vial) 4 mg IVPUSH Q8H PRN PRN Reason: Nausea and Vomiting Pharmacy Consult (Consult Rx Perform Med Rec) 1 each MISCELLANE ONCE PRN PRN Reason: Consult order Quetiapine Fumarate (Quetiapine Fumarate 100 Mg Tablet) 100 mg PO BEDTIME [facility] Last Admin: 05/30/22 21:13 Dose: 100 mg Sodium Chloride (0.9 % Sodium Chloride Flush 3 Ml Syringe) 3 ml IVFLUSH QSHIFT [facility] Last Admin: 05/31/22 08:31 Dose: 3 ml Home Medications Medication Instructions Recorded Confirmed Last Taken Type acetaminophen 500 mg tablet 1 tab PO Q8H PRN Fever Or Pain 05/30/22 05/30/22 05/29/22 History atorvastatin 80 mg tablet 1 tab PO DAILY 05/30/22 05/30/22 05/29/22 History bupropion HCl 150 mg tablet,12 hr 300 mg PO DAILY 05/30/22 05/30/22 05/29/22 History sustained-release dulaglutide 0.75 mg/0.5 mL 0.75 mg subcut Mo@0900 05/30/22 05/30/22 05/29/22 History subcutaneous pen injector (Trulicity) eszopiclone 2 mg tablet 1 tab PO BEDTIME PRN Sleep 05/30/22 05/30/22 05/29/22 History gabapentin 300 mg capsule 1 cap PO TID PRN Pain 05/30/22 05/30/22 05/29/22 History insulin glargine 100 unit/mL (3 45 unit subcut BEDTIME 05/30/22 05/30/22 05/29/22 History mL) subcutaneous pen (Basaglar KwikPen U-100 Insulin) lisinopril 20 2 tab PO DAILY 05/30/22 05/30/22 05/29/22 History mg-hydrochlorothiazide 12.5 mg tablet metformin 500 mg tablet,extended 4 tab PO QAM 05/30/22 05/30/22 05/29/22 History release 24 hr metoprolol tartrate 25 mg tablet 1 tab PO BID 05/30/22 05/30/22 05/29/22 History nicotine (polacrilex) 4 mg buccal 1 adelina PO Q2H PRN Nicotine Cravings 05/30/22 05/30/22 05/29/22 History lozenge nicotine 21 mg/24 hr daily 1 patch topical DAILY 05/30/22 05/30/22 05/29/22 History transdermal patch quetiapine 100 mg tablet 200 mg PO BEDTIME 05/30/22 05/30/22 05/29/22 History sildenafil (pulm.hypertension) 20 20 mg PO DAILY 05/30/22 05/30/22 05/29/22 History mg tablet Physical Exam Vital Signs: Last Vital Signs Temp 97.7 F 05/31/22 11:08 Pulse 85 05/31/22 11:08 Resp 16 05/31/22 11:08 BP 101/54 L 05/31/22 11:08 Pulse Ox 95 05/31/22 11:08 O2 Del Method 05/31/22 11:08 BMI result Body Mass Index 29.6 Const Other: NAD Chest Chest palpation & inspection: normal inspection of the chest Resp Other: CTAB Cardio Jugular venous distension: no JVD Heart sounds: S1 normal heart sound present and S2 normal heart sound present GI Other: Soft. Non-tender Other: No suprapubic tenderness Extrem Other: No edema Results Lab Results Result Diagrams: 05/31/22 05:24 05/31/22 05:38 Lab results: Chemistry 05/30/22 05/31/22 12:10 05:38 Sodium 139 139 Potassium 4.6 4.7 Carbon Dioxide 15 L 20 L BUN 44 H 41 H Creatinine 4.22 H* 2.78 H Calcium 8.8 8.6 Hematology 05/30/22 05/31/22 12:28 05:24 WBC 8.1 6.1 Hgb 11.0 L 9.9 L Plt Count 177 146 L Urine Studies 05/30/22 17:17 Urine Creatinine 116.59 Assessment and Plan (1) Acute renal failure: Status: Acute Plan Mr. Coleman Harris is a 61-year-old gentleman with past medical history of intermittent Diarrhea, HTN, DM2, and HLD who presented with orthostatic symptoms. He was found to have hypotension responding to IVF support. HE was also found to have renal failure with SCr of 4.22; BUN was 44; serum bicarbonate 15. CT unremarkable with no obstructive uropathy.? Saez was placed with return of 500 mL of clear urine.? He tells me he has had urinary retention symptoms for months. # JAMARI - unknown baseline - Cr peaking >4mg/dL - remarkable Cr drop with IVF support - Course most c/w pre-renal azotemia given the orthodostatic symptoms and hypertension on presentation. However obstructive uropathy needs to be worked up. He required Saez with 500cc UOP. Saez now removed. Plan: - monitor baldder scans q shift - if Bladder scans >350 please replace saez - consider flomax - c/w IVF support - renal panel daily. - hold lisinopril + HCTZ as above; continue metoprolol tartrate Procedures Date of Service Date of Service: 05/31/22
[2022-05-31] MEDS: QUEtiapine Fumarate 100 MG TABLET PO (21:15)
[2022-05-31] MEDS: Magnesium Hydrox/Alum Hydrox 30 ML ORAL.SUSP 15 ML PO (22:48)
[2022-06-01] MEDS: Lactated Ringers 1,000 ML 125 ML IVCONT ×3 (01:55→17:01)
[2022-06-01] MEDS: Heparin Sodium,Porcine 5,000 UNIT/ML VIAL 5000 UNIT SUBCUT ×3 (02:07→17:48)
[2022-06-01 03:14] VITALS: BP 122/61; PULSE 60; RESP 17; TEMP 36.7; O2SAT 96
[2022-06-01 05:48] LABS: Folate 9.6 ng/mL (> or = 4.0); Vitamin B12 < 146 pg/mL (200-900)
[2022-06-01 07:03] LABS: Hematocrit 29.1 % (42.0-52.0); Hemoglobin 9.6 g/dl (14.0-18.0); Mean Corpuscular Hemoglobin 30.2 pg (27.0-33.0); Mean Corpuscular Volume 91.5 fL (80.0-98.0); Platelet Count 131 X10*3/uL (160-400); Red Blood Count 3.18 X10*6/uL (4.60-5.80); Red Cell Distribution Width 13.1 % (11.0-16.0); White Blood Count 4.3 X10*3/uL (4.8-10.8)
[2022-06-01 07:15] VITALS: BP 136/60; PULSE 77; RESP 17; TEMP 36.2; O2SAT 95
[2022-06-01 07:18] LABS: Anion Gap 15 (12-20); Blood Urea Nitrogen 33 mg/dL (9-16); Carbon Dioxide 22 mmol/L (22-29); Chloride 106 mmol/L (96-108); Creatinine Clr Calc Pharmacy 40.5; Estimated Glomerular Filt Rate 35; Glucose Random 179 mg/dL (60-115); Potassium 4.4 mmol/L (3.3-5.1); Sodium 139 mmol/L (135-145)
[2022-06-01 08:17] LABS: Glucose, Whole Blood 160 mg/dL (60-115)
[2022-06-01] MEDS: Metoprolol Tartrate 25 MG TABLET PO ×2 (08:26→20:52)
[2022-06-01] MEDS: Nicotine 21 MG PATCH.TD24 TRANSDERMA (08:26)
[2022-06-01] MEDS: Insulin Lispro 100 UNIT/ML 3 ML VIAL SUBCUT ×2 (08:26→20:52)
[2022-06-01] MEDS: Atorvastatin Calcium 80 MG TABLET PO (08:26)
[2022-06-01] MEDS: 0.9 % Sodium Chloride Flush 3 ML SYRINGE IVFLUSH (08:26)
[2022-06-01] MEDS: buPROPion HCl XL 300 MG TAB.ER.24H PO (08:26)
[2022-06-01] MEDS: Gabapentin 100 MG CAPSULE PO (08:26)
[2022-06-01] MEDS: Cyanocobalamin (Vitamin B-12) 1,000 MCG/ML VIAL 1000 MCG IM (10:17)
--- NOTE | 2022-06-01 11:11 | HO.PM.IMPN ---
Subjective Subjective Date of Service: 06/01/22 Interval History: no lightheadedness no nausea or vomiting SCr improving has had incomplete voiding symptoms for months Review of Systems Review of Systems: Yes all other systems are reviewed and are negative Physical Exam Vital Signs: Vital Signs: Last Vital Signs Temp 97.2 F 06/01/22 07:15 Pulse 77 06/01/22 07:15 Resp 17 06/01/22 07:15 BP 136/60 06/01/22 07:15 Pulse Ox 95 06/01/22 07:15 O2 Del Method 06/01/22 07:15 BMI result Body Mass Index 29.6 Gen: in no acute distress HEENT: sclera anicteric, moist mucus membranes Neck: supple Lungs: clear to auscultation bilaterally Heart: regular rate and rhythm, no murmurs Abd: soft, non-tender, non-distended Ext: no edema Skin: warm/well-perfused Neuro: alert and oriented x3, no focal findings Psych: appropriate affect Objective Data Active Medications Acetaminophen (Acetaminophen 325 Mg Tablet) 650 mg PO Q6H PRN PRN Reason: Pain, Mild (Pain Scale 1-3) Al Hydroxide/Mg Hydroxide (Magnesium Hydrox/Alum Hydrox 30 Ml Oral.Susp) 15 ml PO Q6H PRN PRN Reason: heartburn Last Admin: 05/31/22 22:48 Dose: 15 ml Documented By: LIO Atorvastatin Calcium (Atorvastatin Calcium 80 Mg Tablet) 80 mg PO DAILY [facility] Last Admin: 06/01/22 08:26 Dose: 80 mg Documented By: MAURICE Bupropion HCl (Bupropion Hcl Xl 300 Mg Tab.Er.24h) 300 mg PO DAILY [facility] Last Admin: 06/01/22 08:26 Dose: 300 mg Documented By: MAURICE Cyanocobalamin (Cyanocobalamin (Vitamin B-12) 1,000 Mcg/Ml Vial) 1,000 mcg IM DAILY@1000 [facility] Stop: 06/07/22 10:01 Last Admin: 06/01/22 10:17 Dose: 1,000 mcg Documented By: MAURICE Dextrose (Dextrose 50 % 25 Gm/50 Ml Syringe) 25 gm IVPUSH Q15M PRN PRN Reason: per Hypoglycemia Standing Ord. Last Admin: 05/30/22 12:44 Dose: 25 gm Documented By: HO.COOPEB Dextrose (Dextrose 50 % 25 Gm/50 Ml Syringe) 25 gm IVPUSH Q15M PRN; Protocol PRN Reason: per Hypoglycemia Standing Ord. Gabapentin (Gabapentin 100 Mg Capsule) 100 mg PO TID [facility] Last Admin: 06/01/22 08:26 Dose: 100 mg Documented By: MAURICE Glucose (Glucose Gel 15 Gm Gel..Gram.) 15 gm PO Q15M PRN; Protocol PRN Reason: per Hypoglycemia Standing Ord. Heparin Sodium (Porcine) (Heparin Sodium,Porcine 5,000 Unit/Ml Vial) 5,000 unit SUBCUT Q8H [facility] Last Admin: 06/01/22 10:16 Dose: 5,000 unit Documented By: MAURICE Lactated Ringer's (Lr) 1,000 mls @ 125 mls/hr IVCONT .Q8H [facility] Last Admin: 06/01/22 09:18 Dose: 125 mls/hr Documented By: MAURICE Insulin Human Lispro (Insulin Lispro 100 Unit/Ml 3 Ml Vial) 0 unit SUBCUT QIDACHS [facility]; Protocol Last Admin: 06/01/22 08:26 Dose: 2 unit Documented By: MAURICE Metoprolol Tartrate (Metoprolol Tartrate 25 Mg Tablet) 25 mg PO BID [facility]; Protocol Last Admin: 06/01/22 08:26 Dose: 25 mg Documented By: MAURICE Nicotine (Nicotine 21 Mg Patch.Td24) 21 mg TRANSDERMA DAILY [facility] Last Admin: 06/01/22 08:26 Dose: 21 mg Documented By: MAURICE Nicotine Polacrilex (Nicotine Polacrilex Lozenge 4 Mg Lozenge) 4 mg BUCCAL Q2H PRN PRN Reason: Nicotine Cravings Ondansetron HCl (Ondansetron Hcl 4 Mg/2 Ml Vial) 4 mg IVPUSH Q8H PRN PRN Reason: Nausea and Vomiting Pharmacy Consult (Consult Rx Perform Med Rec) 1 each MISCELLANE ONCE PRN PRN Reason: Consult order Quetiapine Fumarate (Quetiapine Fumarate 100 Mg Tablet) 100 mg PO BEDTIME [facility] Last Admin: 05/31/22 21:15 Dose: 100 mg Documented By: LIO Sodium Chloride (0.9 % Sodium Chloride Flush 3 Ml Syringe) 3 ml IVFLUSH QSHIFT [facility] Last Admin: 06/01/22 08:26 Dose: 3 ml Documented By: MAURICE Tamsulosin HCl (Tamsulosin Hcl 0.4 Mg Capsule) 0.4 mg PO BEDTIME [facility] Labs CBC & Chem 7: 06/01/22 05:54 06/01/22 05:54 Labs: Laboratory Results - last 24 hr 05/31/22 05/31/22 05/31/22 05:38 11:11 14:56 MCV MCH MCHC RDW Plt Count MPV Absolute Nucleated RBC Nucleated RBC % (auto) Anion Gap Estim Creat Clear Calc Estimated GFR POC Glucose 179 H 182 H Random Glucose Calcium Vitamin B12 < 146 L Folate 9.6 05/31/22 06/01/22 06/01/22 18:44 05:54 05:54 MCV 91.5 MCH 30.2 MCHC 33.0 RDW 13.1 Plt Count 131 L MPV 12.0 Absolute Nucleated RBC 0.000 Nucleated RBC % (auto) 0.0 Anion Gap 15 Estim Creat Clear Calc 40.5 Estimated GFR 35 POC Glucose 163 H Random Glucose 179 H D Calcium 9.0 Vitamin B12 Folate 06/01/22 07:14 MCV MCH MCHC RDW Plt Count MPV Absolute Nucleated RBC Nucleated RBC % (auto) Anion Gap Estim Creat Clear Calc Estimated GFR POC Glucose 160 H Random Glucose Calcium Vitamin B12 Folate Assessment and Plan (1) Acute renal failure: Status: Acute [facility] hospital d#3 61yo M with HTN, DM2, and HLD visiting from [place], [place] presenting with acute symptomatic hypoglycemia with hypotension, found to be in JAMARI. # JAMARI - unknown baseline- requesting records from his primary care office in [place]. continue sotonic fluid hydration.? Nephrology consulted.? monitor BMP.? hold DANA-I and thiazide.? avoid nephrotoxins. likely prerenal JAMARI + some component of obstructive uropathy. 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 unclear cause- ?MTF effect. will check anti-IF and anti-parietal cell antibodies and start parenteral B12 replacement? # hypoglycemia, resolved - likely due to impaired renal clearance of long-acting insulin- held # HTN - held lisinopril + HCTZ as above; continue metoprolol tartrate # DM2 - A1c only 5.7- hold insulin for now other than correction-dose lispro.? d/c'ed MTF due to renal insufficiency + B12 deficiency # tobacco abuse - NRT # VTE ppx: UFH In my clinical judgment, the patient requires continued hospitalization for the following reasons: JAMARI requiring IV fluid hydration Quality Stroke Does the patient have a stroke diagnosis?: No VTE Prior VTE?: No VTE Risk Level:: Medical - moderate - high VTE Device Contraindication: N/A - Device Ordered VTE Drug Contraindication: N/A - Med Ordered
[2022-06-01 11:52] LABS: Glucose, Whole Blood 131 mg/dL (60-115)
--- NOTE | 2022-06-01 11:55 | PM.PNNEP ---
Subjective Subjective Date of Service: 06/01/22 Interval history: Cr improving daily now on flomax Physical Exam Vital Signs: Vital Signs: Last Vital Signs Temp 97.2 F 06/01/22 07:15 Pulse 77 06/01/22 07:15 Resp 17 06/01/22 07:15 BP 136/60 06/01/22 07:15 Pulse Ox 95 06/01/22 07:15 O2 Del Method 06/01/22 07:15 BMI result Body Mass Index 29.6 Chest: Chest palpation & inspection: normal inspection of the chest Cardio: Jugular venous distension: no JVD Heart sounds: S1 normal heart sound present and S2 normal heart sound present Objective Data Labs CBC & Chem 7: 06/01/22 05:54 06/01/22 05:54 Labs: Laboratory Results - last 24 hr 05/31/22 05/31/22 05/31/22 05:38 14:56 18:44 WBC RBC Hgb Hct MCV MCH MCHC RDW Plt Count MPV Absolute Nucleated RBC Nucleated RBC % (auto) Sodium Potassium Chloride Carbon Dioxide Anion Gap BUN Creatinine Estim Creat Clear Calc Estimated GFR POC Glucose 182 H 163 H Random Glucose Calcium Vitamin B12 < 146 L Folate 9.6 06/01/22 06/01/22 06/01/22 05:54 05:54 07:14 WBC 4.3 L RBC 3.18 L Hgb 9.6 L Hct 29.1 L MCV 91.5 MCH 30.2 MCHC 33.0 RDW 13.1 Plt Count 131 L MPV 12.0 Absolute Nucleated RBC 0.000 Nucleated RBC % (auto) 0.0 Sodium 139 Potassium 4.4 Chloride 106 Carbon Dioxide 22 Anion Gap 15 BUN 33 H Creatinine 1.96 H Estim Creat Clear Calc 40.5 Estimated GFR 35 POC Glucose 160 H Random Glucose 179 H D Calcium 9.0 Vitamin B12 Folate 06/01/22 11:43 WBC RBC Hgb Hct MCV MCH MCHC RDW Plt Count MPV Absolute Nucleated RBC Nucleated RBC % (auto) Sodium Potassium Chloride Carbon Dioxide Anion Gap BUN Creatinine Estim Creat Clear Calc Estimated GFR POC Glucose 131 H Random Glucose Calcium Vitamin B12 Folate Procedures Date of Service Date of Service: 06/01/22 Assessment & Plan Assessment and plan (1) Acute renal failure: Status: Acute Plan Mr. Coleman Harris is a 61-year-old gentleman with past medical history of intermittent Diarrhea, HTN, DM2, and HLD who presented with orthostatic symptoms. He was found to have hypotension responding to IVF support. HE was also found to have renal failure with SCr of 4.22; BUN was 44; serum bicarbonate 15. CT unremarkable with no obstructive uropathy.? Saez was placed with return of 500 mL of clear urine.? He tells me he has had urinary retention symptoms for months. # JAMARI - unknown baseline - Cr peaking >4mg/dL and improving nicely now - remarkable Cr drop with IVF support - Course most c/w pre-renal azotemia given the orthodostatic symptoms and hypertension on presentation. However obstructive uropathy needs to be worked up. He required Saez with 500cc UOP. Saez now removed. Plan: - monitor baldder scans q shift - if Bladder scans >350 please replace saez - c/w flomax - renal panel daily. - hold lisinopril + HCTZ as above; continue metoprolol tartrate Time Spent With Patient Time: Total time spent is greater than 50% in coordination of care (as documented) at patient's floor/unit and/or counseling patient: Progress Note: Quality Stroke Does the patient have a stroke diagnosis?: No
[2022-06-01 12:00] VITALS: BP 129/62; PULSE 76; RESP 16; TEMP 36.3; O2SAT 94
[2022-06-01 15:53] LABS: Glucose, Whole Blood 150 mg/dL (60-115)
[2022-06-01 16:00] VITALS: BP 124/61; PULSE 69; RESP 17; TEMP 36.1; O2SAT 95
[2022-06-01 18:40] LABS: OBS Int Ctl Valid YES; OBS1 NEGATIVE (NEGATIVE)
[2022-06-01 19:06] VITALS: BP 146/67; PULSE 74; RESP 17; TEMP 36.2; O2SAT 98
[2022-06-01 19:39] LABS: Glucose, Whole Blood 199 mg/dL (60-115)
[2022-06-01] MEDS: Tamsulosin HCL 0.4 MG CAPSULE PO (20:52)
[2022-06-01] MEDS: QUEtiapine Fumarate 100 MG TABLET PO (20:52)
[2022-06-01 23:33] VITALS: BP 133/60; PULSE 80; RESP 16; TEMP 36.3; O2SAT 95
[2022-06-02] MEDS: Lactated Ringers 1,000 ML 125 ML IVCONT ×2 (00:41→08:50)
[2022-06-02 03:39] VITALS: BP 120/58; PULSE 86; RESP 16; TEMP 36.1; O2SAT 94
[2022-06-02] MEDS: Heparin Sodium,Porcine 5,000 UNIT/ML VIAL 5000 UNIT SUBCUT ×2 (04:14→10:16)
[2022-06-02 06:59] LABS: Anion Gap 15 (12-20); Blood Urea Nitrogen 21 mg/dL (9-16); Calcium 8.9 mg/dL (8.4-10.2); Carbon Dioxide 20 mmol/L (22-29); Chloride 109 mmol/L (96-108); Creatinine Clr Calc Pharmacy 46.2; Estimated Glomerular Filt Rate 41; Glucose Random 143 mg/dL (60-115); Potassium 4.3 mmol/L (3.3-5.1); Sodium 140 mmol/L (135-145)
[2022-06-02 07:39] VITALS: BP 116/69; PULSE 73; RESP 18; TEMP 36.4; O2SAT 96
[2022-06-02 07:53] LABS: Glucose, Whole Blood 136 mg/dL (60-115)
[2022-06-02] MEDS: buPROPion HCl XL 300 MG TAB.ER.24H PO (08:19)
[2022-06-02] MEDS: Atorvastatin Calcium 80 MG TABLET PO (08:19)
[2022-06-02] MEDS: Nicotine 21 MG PATCH.TD24 TRANSDERMA (08:19)
[2022-06-02] MEDS: Metoprolol Tartrate 25 MG TABLET PO (08:23)
[2022-06-02] MEDS: Cyanocobalamin (Vitamin B-12) 1,000 MCG/ML VIAL 1000 MCG IM (10:17)
[2022-06-02 11:29] LABS: Glucose, Whole Blood 140 mg/dL (60-115)
[2022-06-02 11:33] VITALS: BP 127/71; PULSE 86; RESP 18; TEMP 36.8; O2SAT 97
--- NOTE | 2022-06-02 13:18 | P.DS_ITS ---
DS: Providers Provider Date of Service: 06/02/22 Date of admission: 05/30/22 18:02 Date of discharge: 06/02/22 Primary care physician: Unknown Physician Consults: 05/30/22 16:18 Consult to Nephrology Routine Consulting Provider: Johan Quintero Reason for consultation: kaylah DS: Diagnosis Discharge Diagnosis (1) Acute renal failure: Status: Acute (2) Hypoglycemia: Status: Acute (3) Hypotension: Status: Acute (4) B12 deficiency anemia: Status: Acute (5) Prostatism: Status: Acute DS: Summary Hospital Course Hospital Course: from my admission H+P, 05/30/22: 61yo M with HTN, DM2, and HLD visiting from [place], [place], where his primary care is from [facility] at [address] [place] [address].? He came in because he woke up lightheaded, sweaty, and nauseous.? He also has been vomiting for the past 1 day; in retrospect, though, he's had intermittent vomiting every 3 days or so for the past few months.? No fever, chills, cough, dyspnea, chest pain, palpitations, or abdominal pain.? In the ED, he was found to be hypotensive to 80/51 and hypothermic to 95.9.? Blood glucose was 38.? He was given D50 IV and the hypoglycemia, hypotension, and hypothermia resolved.? His lightheadeness has resolved.? However, he was found to have elevated SCr of 4.22; BUN was 44; serum bicarbonate 15. CT unremarkable with no obstructive uropathy.? Barrios was placed with return of 500 mL of clear urine.? We do not have a baseline creatinine.? No excess NSAID use and no history of CKD.? No recent changes to his medication regimen.? No diarrhea. ? He was admitted to the medical-surgical floor. Baseline creatinine was 1.2 from December 2020. He was given isotonic fluid hydration and creatinine recovered to 1.72 with holding his DANA-I/thiazide combination and giving IV hydration. He likely had prerenal azotemia but was also given tamsulosin given symptoms of prostatism. Hypoglycemia resolved and was likely due to impaired renal clearance of long-acting insulin, which was discontinued. Liraglutide was also discontinued. HbA1c was only 5.7. Metformin was also discontinued due to renal injury and B12 deficiency. He was started on parenteral repletion of vitamin B12 and anti-parietal cell and intrinsic factor antibodies are pending at the time of discharge. He should follow up with his primary care doctor within 1 week. Repeat BMP in 1 week and B12 level in 3 months were ordered. Time Spent with Patient Time attestation: Total time spent providing and/or coordinating discharge services: Discharge coordination time: Greater than 30 minutes Quality: Safe Use of Opioids Does Pt have an Active Cancer Diagnosis on the Problem List?: No Quality: Stroke Does the patient have a stroke diagnosis?: No Physical Exam Vital Signs: Vital Signs: Last Vital Signs Temp 98.2 F 06/02/22 11:33 Pulse 86 06/02/22 11:33 Resp 18 06/02/22 11:33 BP 127/71 06/02/22 11:33 Pulse Ox 97 06/02/22 11:33 O2 Del Method 06/02/22 11:33 BMI result Body Mass Index 29.6 Gen: in no acute distress HEENT: sclera anicteric, moist mucus membranes Neck: supple Lungs: clear to auscultation bilaterally Heart: regular rate and rhythm, no murmurs Abd: soft, non-tender, non-distended Ext: no edema Skin: warm/well-perfused Neuro: alert and oriented x3, no focal findings Psych: appropriate affect DS: Data Data Completed and Pending Pending studies at discharge: intrinsic factor antibody, 06/01/22 pariental cell antibody, 06/01/22 Discharge Plan Discharge Anticipated Discharge Date/Time: 06/02/22 12:47 Patient Disposition: Home, Self-Care Discharge Diagnosis: hypoglycemia and hypotension due to acute kidney injury vitamin B12 deficiency anemia Referrals: Physician,Unknown J [Primary Care Provider] - 1 Week Discharge Medications: New tamsulosin 0.4 mg Capsule 0.4 mg PO BEDTIME Qty: 30 0RF cyanocobalamin (vitamin B-12) 1,000 mcg/mL Solution See Rx Instructions .ROUTE .COMPLEX Qty: 10 0RF Rx Instructions: 1,000 mcg intramuscularly once daily for 5 days, then once weekly (DME) syringe with needle, safety 1 mL 23 gauge x 1 syringe See Rx Instructions .Route Qty: 10 0RF Rx Instructions: As directed Continued bupropion HCl 150 mg tablet sustained-release 12 hr 300 mg PO DAILY atorvastatin 80 mg tablet 1 tab PO DAILY quetiapine 100 mg tablet 200 mg PO BEDTIME acetaminophen 500 mg tablet 1 tab PO Q8H PRN (Reason: Fever Or Pain) nicotine 21 mg/24 hr patch 24 hour 1 patch topical DAILY gabapentin 300 mg capsule 1 cap PO TID PRN (Reason: Pain) nicotine (polacrilex) 4 mg lozenge 1 adelina PO Q2H PRN (Reason: Nicotine Cravings) metoprolol tartrate 25 mg tablet 1 tab PO BID eszopiclone 2 mg tablet 1 tab PO BEDTIME PRN (Reason: Sleep) sildenafil (pulm.hypertension) 20 mg tablet 20 mg PO DAILY Discontinued lisinopril-hydrochlorothiazide 20-12.5 mg tablet 2 tab PO DAILY metformin 500 mg tablet extended release 24 hr 4 tab PO QAM insulin glargine [Basaglar KwikPen U-100 Insulin] 100 unit/mL (3 mL) insulin pen 45 unit subcut BEDTIME Trulicity 0.75 mg/0.5 mL pen injector 0.75 mg subcut Mo@0900 Discharge Orders: Discharge Order (Routine); Ordered 06/02/22 Ordered By: Aneudy Coreas Diet: Diabetic diet Activity on Discharge: As tolerated Stand Alone Forms: Patient Portal Discharge page Other Ambulatory Orders: Vitamin B12 (Routine) Timeframe: 3 Months Facility: [facility] - Location: Laboratory Ordered By: Aneudy Coreas Basic Metabolic Panel (Routine) Timeframe: 1 Week Facility: [facility] - Location: Laboratory Ordered By: Aneudy Coreas Care Plan Goals: kidney health avoid hypoglycemia treat B12 deficiency Health Concerns: hypoglycemia and hypotension due to acute kidney injury vitamin B12 deficiency anemia Plan of Treatment: STOP Basaglar STOP metformin STOP lisinopril-HCTZ still follow diabetic diet START tamsulosin 0.4 mg nightly for prostatism START vitamin B12 1000 mcg IM daily x 5 days, then weekly; recheck level in 3 months Please follow up with your primary care doctor within 1 week. Return to the hospital if you experience recurrent or worsening symptoms. Please quit smoking; use nicotine replacement as previously prescribed. Assessment: See Discharge Summary.
--- NOTE | 2022-06-02 13:20 | MHC.CM.PN ---
PT MEDICALLY CLEARED FOR D/C HOME NO SERVICES, PER HOSPITALIST PT COMFORTABLE ADMINISTERING HIS OWN B12 INJECTIONS AND IS NOT SURE WHEN HE WILL BE RETURNING TO [place]. PT WILL ARRANGE S.O. FOR TRANSPORT
[2022-06-04 22:46] LABS: Intrinsic Factor Antibodies Negative (Negative)
[2022-06-04 22:56] LABS: Parietal Cell Antibody <=20.0 Unit (<=20.0)
== END 2022-06-02 14:00 | disposition home or self-care (01) | DRG 469 ==
LOC: HO.ED 15:50 → HO.EDOVER 18:11 → HO.S3 19:11
PROVIDERS: Admitting Provider Family Medicine; Emergency Provider Emergency Medicine; PCP Student in an Organized Health Care Education/Training Program; Visit Provider Family Medicine
DX: N17.9 Acute kidney failure, unspecified (principal); E11.649 Type 2 diabetes mellitus with hypoglycemia without coma; I95.9 Hypotension, unspecified; D51.9 Vitamin B12 deficiency anemia, unspecified; E78.5 Hyperlipidemia, unspecified; N40.0 Benign prostatic hyperplasia without lower urinary tract symptoms; I10 Essential (primary) hypertension; Z20.822 Contact with and (suspected) exposure to COVID-19; F17.210 Nicotine dependence, cigarettes, uncomplicated; Z23 Encounter for immunization; Z71.6 Tobacco abuse counseling; Z79.899 Other long term (current) drug therapy
CPT/HCPCS: 36415; 70450; 71045; 74176; 76775; 80048; 80053; 82272; 82607; 82728; 82746; 82947; 83036; 83516; 83540; 83615; 84156; 84300; 84484; 85025; 85027; 85045; 86340; 87635; 90686; 93005; 99285; C1758; J2405

== ENCOUNTER 2022-06-21 23:07 | Emergency (ER) | payer MEDICAID, SELFPAY ==
--- NOTE | ~2022-06-21 | XR_ITS ---
EXAMINATION: XR CHEST CLINICAL INFORMATION: Chest pain COMPARISON: 05/30/2022 TECHNIQUE: Frontal view of the chest was obtained. FINDINGS: The lungs are well expanded. There is no focal consolidation, edema, or effusion. No pneumothorax. The cardiomediastinal silhouette is within normal limits. No acute osseous abnormality. XR/XR chest 1V IMPRESSION: Clear lungs.
[2022-06-21 23:28] VITALS: BP 116/57; PULSE 78; RESP 22; TEMP 36.4; O2SAT 98; BMI 29.8
--- NOTE | 2022-06-21 23:43 | ECG_ITS ---
Test Reason : CHEST PAIN Blood Pressure : / mmHG Vent. Rate : 075 BPM Atrial Rate : 075 BPM P-R Int : 170 ms QRS Dur : 088 ms QT Int : 398 ms P-R-T Axes : 038 -24 074 degrees QTc Int : 444 ms Normal sinus rhythm Left axis deviation Nonspecific T wave abnormality Lateral leads Abnormal ECG When compared with ECG of 30-MAY-2022 12:04, No significant change was found Referred By: Generic ED Physician Electronically Signed By:WILMAR MARTINEZ MD
[2022-06-22 00:20] LABS: Basophils Percent Auto 0.5 % (0-2); Eosinophils Absolute Auto 0.1 X10*3/uL (0.0-0.4); Eosinophils Percent Auto 2.3 % (0-4); Hematocrit 34.2 % (42.0-52.0); Hemoglobin 11.3 g/dl (14.0-18.0); Imm Gran Abs Auto 0.03 X10*3/uL (0.00-0.03); Imm Gran Pct Auto 0.5 % (0.0-0.4); Lymphocytes Absolute Auto 2.2 X10*3/uL (1.2-4.9); Lymphocytes Percent Auto 35.6 % (20-40); MANUAL DIFF FLAG NO; Mean Corpuscular Hemoglobin 29.9 pg (27.0-33.0); Mean Corpuscular Volume 90.5 fL (80.0-98.0); Mean Platelet Volume 11.9 fL (9.4-12.4); Monocytes Absolute Auto 0.7 X10*3/uL (0.1-1.2); Monocytes Percent Auto 10.7 % (2-11); Neutrophils Absolute Auto 3.1 x10*3/uL (2.0-8.3); Neutrophils Percent Auto 50.4 % (45-73); Platelet Count 177 X10*3/uL (160-400); Red Blood Count 3.78 X10*6/uL (4.60-5.80); Red Cell Distribution Width 13.7 % (11.0-16.0); White Blood Count 6.1 X10*3/uL (4.8-10.8)
[2022-06-22 00:40] LABS: Troponin-I High Sensitivity < 3.5 ng/L (<3.5-35.0)
[2022-06-22 00:49] LABS: Anion Gap 19 (12-20); Blood Urea Nitrogen 26 mg/dL (9-16); Calcium 9.7 mg/dL (8.4-10.2); Carbon Dioxide 22 mmol/L (22-29); Chloride 97 mmol/L (96-108); Creatinine Clr Calc Pharmacy 34.5; Estimated Glomerular Filt Rate 29; Glucose Random 484 mg/dL (60-115); Potassium 4.5 mmol/L (3.3-5.1); Sodium 133 mmol/L (135-145)
[2022-06-22 01:12] LABS: Glucose, Whole Blood 420 mg/dL (60-115)
[2022-06-22 02:34] VITALS: BP 140/53; PULSE 76; RESP 18; TEMP 36.6; O2SAT 96
[2022-06-22 02:42] LABS: Glucose, Whole Blood 513 mg/dL (60-115)
--- NOTE | 2022-06-22 02:48 | ED_ITS ---
HPI - Chest Pain General Chief Complaint: Chest Pain Stated Complaint: dizzness,unable to walk high bp Time Seen by Provider: 06/22/22 02:47 Source: patient Mode of arrival: ambulatory Limitations: no limitations History of Present Illness HPI narrative: 62-year-old male who presents emergency department for evaluation of lightheadedness, dizziness, feeling weak and chest pain. Patient states that he started to feel sick at around 19:00 hours on 06/20/2022. He states that his glucose have been running in the 300 range. He checked his glucose at home and his glucose was too high to register and is monitor goes up to 600. He repeated his glucose at home and it was 575. The patient states that over the past several days he has noted increased thirst and increased urinary frequency. Patient is currently being treated with long-acting glargine insulin. He was hospitalized on 06/02/2022 for hypotension hypoglycemia and at that time he had an elevated BUN and creatinine secondary to prerenal syndrome. The had a nephrology consult and there was a concerned that the patient's hypoglycemia was caused by his kidney disease and impaired renal clearance of his long-acting insulin. His Trulicity (liragludide) and metformin were also discontinued. His hemoglobin A1c was only 5.7 at that time. He states that he was experiencing chest pain that came on suddenly at 19:00 hours. He describes as a constant pressure-like sensation he points to his mid sternum when asked to localize the pain. The pain did not radiate to his neck, jaw, arms or back. He denied fever, chills, rhinorrhea, cough, shortness of breath, dyspnea on exertion, nausea, vomiting, diarrhea. MD complaint: chest pain Onset (ago): hour(s) Timing of current episode: constant Prior episodes: Yes Onset: during rest Pain location: substernal Pain radiation: none Severity: moderate Pain scale (0-10): 7 Quality: other (Pressure) Relieving factors: nothing Exacerbating factors: nothing Treatment prior to arrival: none Related Data Home Medications Medication Instructions Recorded Confirmed acetaminophen 500 mg tablet 1 tab PO Q8H PRN Fever Or Pain 05/30/22 05/30/22 atorvastatin 80 mg tablet 1 tab PO DAILY 05/30/22 05/30/22 bupropion HCl 150 mg tablet,12 hr 300 mg PO DAILY 05/30/22 05/30/22 sustained-release eszopiclone 2 mg tablet 1 tab PO BEDTIME PRN Sleep 05/30/22 05/30/22 gabapentin 300 mg capsule 1 cap PO TID PRN Pain 05/30/22 05/30/22 metoprolol tartrate 25 mg tablet 1 tab PO BID 05/30/22 05/30/22 nicotine (polacrilex) 4 mg buccal 1 adelina PO Q2H PRN Nicotine Cravings 05/30/22 05/30/22 lozenge nicotine 21 mg/24 hr daily 1 patch topical DAILY 05/30/22 05/30/22 transdermal patch quetiapine 100 mg tablet 200 mg PO BEDTIME 05/30/22 05/30/22 sildenafil (pulm.hypertension) 20 20 mg PO DAILY 05/30/22 05/30/22 mg tablet Previous Rx's Medication Instructions Recorded cyanocobalamin (vitamin B-12) See Rx Instructions .Route 06/02/22 1,000 mcg/mL injection solution .COMPLEX #10 mL syringe with needle, safety 1 mL #10 ea 06/02/22 23 gauge x 1 tamsulosin 0.4 mg capsule 0.4 mg PO BEDTIME #30 caps 06/02/22 insulin lispro 100 unit/mL 1 sliding scale dose subcut 06/22/22 subcutaneous solution (Admelog USEASDIRECTD #10 mL U-100 Insulin lispro) Allergies Allergy/AdvReac Type Severity Reaction Status Date / Time No Known Allergies Allergy Unverified 05/09/20 18:56 [No Known Allergies*] Review of Systems Review of Systems: Yes all other systems are reviewed and are negative [facility] Past Medical History Medical History B12 deficiency anemia Dyslipidemia Essential hypertension Type 2 diabetes mellitus Surgical History History of cholecystectomy Family History Family History Mother Diabetes Social History Social History Household Members: Significant Other Housing: House Patient Tobacco Use Status: Current everyday Tobacco user Advance Directives: No service: No Current occupational status: disabled Physical Exam Vital Signs: Vital Signs: Last Vital Signs Temp 98.0 F 06/22/22 04:45 Pulse 71 06/22/22 04:45 Resp 16 06/22/22 04:45 BP 128/65 06/22/22 04:45 Pulse Ox 98 06/22/22 04:45 O2 Del Method 06/22/22 04:45 BMI result Body Mass Index 29.8 Const: General: cooperative and no acute distress Orientation/consciousness: oriented to person and oriented to place Limitations: no limitations HEENT: Head: Yes normal to inspection, Yes normocephalic and Yes atraumatic Ears: external ears normal General nose exam: Normal external nose present Face and sinus: Yes normal facial exam Mouth: Normal oral and palatal mucosa present Throat: Yes posterior oropharynx normal Eyes: General: appearance normal, both eyes and all related structures Pupils: Equal, round and reactive pupils present Neck: Neck: Yes normal visual inspection, Yes no lymphadenopathy, Yes trachea midline and Yes supple Chest: Chest palpation & inspection: normal inspection of the chest and normal palpation of entire chest wall Resp: Effort & Inspection: normal respiratory effort and able to speak in complete sentences Auscultation: clear to auscultation bilaterally Cardio: Rate: regular rate Rhythm: regular rhythm Heart sounds: S1 normal heart sound present, S2 normal heart sound present and no murmurs GI: Inspection: Yes normal to inspection Palpation (GI): Soft to palpation, nontender and no guarding Auscultation: normal bowel sounds : General: Yes no CVA tenderness Back/Spine/Pelvis: Back: no CVA tenderness Skin: General skin exam: no rashes or lesions noted Neuro: General: oriented to person and oriented to place Cranial nerves: Yes CN's II-XII intact bilaterally and Yes Equal, round and reactive pupils present Cognition (Neuro): normal cognition Motor exam (neuro): 5/5 motor strength present throughout Extrem: General: Yes normal to inspection Psych: Appearance: grossly normal Speech and movement: Normal speech and movement present Affect: normal affect Attitude: cooperative Thought process: Normal thought process present Thought content: Normal thought content present Course Course Course Narrative: 62-year-old male who presents emergency department for evaluation of dizziness, weakness, chest pain since 19:00 hours yesterday and increased thirst increased urinary frequency times several days. Patient did check his glucose at home and it was greater than 600. The patient's vital signs were unremarkable. 0317 Patient's laboratory evaluation revealed anemia with an H&H of 11.3 and 34.2 which is chronic. Elevated BUN creatinine of 26 and 2.28 which is increased from 21 and 1.7 to on 06/02/2022. Serum glucose was 484 and repeat point of care glucose was 513 at 02:38 hours. Chest x-ray revealed no acute disease and 12 lead EKG revealed no acute findings Patient was ordered to get lactated Ringer's x2 L IV and regular insulin 10 units IV. Will repeat the patient's point of care glucose and the goal will be to try to get his glucose down to the 200-300 range. 0653: The patient's point of care glucose improved to 328. At the patient is not completed his IV fluid bolus. I will turn the patient's care over to my colleague, Dr. Nicki Dias. MDM - Chest Pain Medical Records Data Attestation: I reviewed the patient's medical records. Lab Data Attestation: I reviewed the patient's lab results. Result diagrams: 06/22/22 00:08 06/22/22 00:08 Labs: Lab Results 06/21/22 06/22/22 06/22/22 Range/Units 23:39 00:08 00:08 WBC 6.1 (4.8-10.8) X10*3/uL RBC 3.78 L (4.60-5.80) X10*6/uL Hgb 11.3 L (14.0-18.0) g/dl Hct 34.2 L (42.0-52.0) % MCV 90.5 (80.0-98.0) fL MCH 29.9 (27.0-33.0) pg MCHC 33.0 (31.0-36.0) g/dl RDW 13.7 (11.0-16.0) % Plt Count 177 D (160-400) X10*3/uL MPV 11.9 (9.4-12.4) fL Immature Gran % (Auto) 0.5 H (0.0-0.4) % Neut % (Auto) 50.4 (45-73) % Lymph % (Auto) 35.6 (20-40) % [place] % (Auto) 10.7 (2-11) % Eos % (Auto) 2.3 (0-4) % Baso % (Auto) 0.5 (0-2) % Lymph # (Auto) 2.2 (1.2-4.9) X10*3/uL [place] # (Auto) 0.7 (0.1-1.2) X10*3/uL Eos # (Auto) 0.1 (0.0-0.4) X10*3/uL Baso # (Auto) 0.0 (0.0-0.2) X10*3/uL Abs Immat Gran (auto) 0.03 (0.00-0.03) X10*3/uL Absolute Neuts (auto) 3.1 (2.0-8.3) x10*3/uL Absolute Nucleated RBC 0.000 (0.0-0.012) X10*3/uL Nucleated RBC % (auto) 0.0 (0.0-0.2) /100WBC Sodium 133 L (135-145) mmol/L Potassium 4.5 (3.3-5.1) mmol/L Chloride 97 (96-108) mmol/L Carbon Dioxide 22 (22-29) mmol/L Anion Gap 19 (12-20) BUN 26 H (9-16) mg/dL Creatinine 2.28 H (0.5-1.4) mg/dL Estim Creat Clear Calc 34.5 Estimated GFR 29 POC Glucose 420 H* (60-115) mg/dL Random Glucose 484 H* (60-115) mg/dL Calcium 9.7 D (8.4-10.2) mg/dL Troponin I High Sens (<3.5-35.0) ng/L 06/22/22 06/22/22 06/22/22 Range/Units 00:08 02:38 06:00 WBC (4.8-10.8) X10*3/uL RBC (4.60-5.80) X10*6/uL Hgb (14.0-18.0) g/dl Hct (42.0-52.0) % MCV (80.0-98.0) fL MCH (27.0-33.0) pg MCHC (31.0-36.0) g/dl RDW (11.0-16.0) % Plt Count (160-400) X10*3/uL MPV (9.4-12.4) fL Immature Gran % (Auto) (0.0-0.4) % Neut % (Auto) (45-73) % Lymph % (Auto) (20-40) % [place] % (Auto) (2-11) % Eos % (Auto) (0-4) % Baso % (Auto) (0-2) % Lymph # (Auto) (1.2-4.9) X10*3/uL [place] # (Auto) (0.1-1.2) X10*3/uL Eos # (Auto) (0.0-0.4) X10*3/uL Baso # (Auto) (0.0-0.2) X10*3/uL Abs Immat Gran (auto) (0.00-0.03) X10*3/uL Absolute Neuts (auto) (2.0-8.3) x10*3/uL Absolute Nucleated RBC (0.0-0.012) X10*3/uL Nucleated RBC % (auto) (0.0-0.2) /100WBC Sodium (135-145) mmol/L Potassium (3.3-5.1) mmol/L Chloride (96-108) mmol/L Carbon Dioxide (22-29) mmol/L Anion Gap (12-20) BUN (9-16) mg/dL Creatinine (0.5-1.4) mg/dL Estim Creat Clear Calc Estimated GFR POC Glucose 513 H* 328 H (60-115) mg/dL Random Glucose (60-115) mg/dL Calcium (8.4-10.2) mg/dL Troponin I High Sens < 3.5 (<3.5-35.0) ng/L ECG Data ECG #1: Attestation: I personally reviewed and interpreted this ECG as follows: Interpretation: 11/09/2045: Normal sinus rhythm with a rate of 75, normal NV interval QRS duration and QTC interval, no ST segment elevation, no ST segment depression, no PACs, no PVCs, no significant T-wave abnormalities, Q-wave in lead 3 and V1 compared to EKG dated 05/30/2022 there is no significant change Discharge Plan Discharge Clinical Impression: Acute hyperglycemia, Acute dehydration Patient Disposition: Still a Patient Additional Instructions: Continue taking your Basaglar insulin as prescribed by your doctor. I am prescribing an insulin lispro pen. Check your blood glucose prior to meals and use the sliding scale to try to get your glucose under better control. Increase the amount of fluid that you are drinking to stay hydrated. Follow-up with your doctor in 2 days. Please return to the emergency department if your symptoms get worse or if you develop any symptoms that are concerning to you. Prescriptions: New insulin lispro [Admelog U-100 Insulin lispro] 100 unit/mL solution 1 sliding scale dose subcut USEASDIRECTD Qty: 10 0RF Rx Instructions: Glucose 150-200 give 2 units 200-250 give 4 units 250-300 give 6 units 300-350 give 8 units Greater than 350 give 10 units No Action bupropion HCl 150 mg tablet sustained-release 12 hr 300 mg PO DAILY atorvastatin 80 mg tablet 1 tab PO DAILY quetiapine 100 mg tablet 200 mg PO BEDTIME acetaminophen 500 mg tablet 1 tab PO Q8H PRN (Reason: Fever Or Pain) nicotine 21 mg/24 hr patch 24 hour 1 patch topical DAILY gabapentin 300 mg capsule 1 cap PO TID PRN (Reason: Pain) nicotine (polacrilex) 4 mg lozenge 1 adelina PO Q2H PRN (Reason: Nicotine Cravings) metoprolol tartrate 25 mg tablet 1 tab PO BID eszopiclone 2 mg tablet 1 tab PO BEDTIME PRN (Reason: Sleep) sildenafil (pulm.hypertension) 20 mg tablet 20 mg PO DAILY tamsulosin 0.4 mg Capsule 0.4 mg PO BEDTIME Qty: 30 0RF cyanocobalamin (vitamin B-12) 1,000 mcg/mL Solution See Rx Instructions .ROUTE .COMPLEX Qty: 10 0RF Rx Instructions: 1,000 mcg intramuscularly once daily for 5 days, then once weekly (DME) syringe with needle, safety 1 mL 23 gauge x 1 syringe See Rx Instructions .Route Qty: 10 0RF Rx Instructions: As directed
[2022-06-22] MEDS: Insulin Regular, Human 100 UNIT/ML 3 ML VIAL 10 UNIT IVPUSH (04:17)
[2022-06-22 04:45] VITALS: BP 128/65; PULSE 71; RESP 16; TEMP 36.7; O2SAT 98
[2022-06-22] MEDS: Lactated Ringers 1,000 ML 999 ML IV ×2 (05:53→05:58)
[2022-06-22 06:04] LABS: Glucose, Whole Blood 328 mg/dL (60-115)
[2022-06-22 07:18] VITALS: BP 130/55; PULSE 75; RESP 17; TEMP 36.6; O2SAT 98
[2022-06-22 08:00] LABS: Glucose, Whole Blood 345 mg/dL (60-115)
== END 2022-06-22 08:13 | disposition still patient (30) ==
PROVIDERS: Emergency Provider Emergency Medicine Emergency Medical Services
DX: E11.65 Type 2 diabetes mellitus with hyperglycemia (principal); E86.0 Dehydration; R07.89 Other chest pain; R42 Dizziness and giddiness; R05.9 Cough, unspecified; R06.02 Shortness of breath; F17.200 Nicotine dependence, unspecified, uncomplicated; Z71.6 Tobacco abuse counseling; Z79.4 Long term (current) use of insulin; Z79.899 Other long term (current) drug therapy
CPT/HCPCS: 36415; 71045; 80048; 82947; 84484; 85025; 93005; 96361; 96374; 99285